=== PATIENT | female | born 1975 | race Caucasian/White ===

== ENCOUNTER 2017-05-14 17:05 | Observation (INO) ==
[2017-05-14] MEDS ORDERED: Ondansetron 4 MG/2 ML VIAL IVP ONE ×2 (17:20→22:47)
[2017-05-14] MEDS ORDERED: Ketorolac 30 MG/ML VIAL IVP ONE (17:20)
[2017-05-14] MEDS ORDERED: 0.9 % Sodium Chloride 1,000 ML IVC ONE (17:20)
--- NOTE | 2017-05-14 17:26 | Emergency Department Note ---
Disposition Clinical Impression: Flank pain Abdominal pain Qualifiers: Abdominal location: unspecified location Qualified Code(s): R10.9 - Unspecified abdominal pain Abdominal mass Qualifiers: Abdominal location: left lower quadrant Qualified Code(s): R19.04 - Left lower quadrant abdominal swelling, mass and lump Disposition: Admitted As Inpatient Condition: Fair Forms: ED Satisfaction Letter, Work/School Release Abdominal Pain HPI - General Chief Complaint: ED Abdominal Pain Stated Complaint: L flank pain Time Seen by Provider: 05/14/17 17:11 Source: patient Limitations: no limitations Nursing Notes Reviewed: Yes Vital Signs Reviewed: Yes - History of Present Illness HPI Narrative: 41-year-old female presents to the emergency Department chief complaint of left- sided flank pain. Pain began approximately 7 AM and has waxed and waned through the course of the day. It radiates anteriorly. There is no trauma. There is no history of kidney stones that she has had that she is aware of, but she has a family history of them. There is also no history of trauma this time. Patient is nauseated but she has not vomited. Comes in today looking for answers as to why she hurts. Pt Subjective Complaint: flank pain Consistency: intermittent Location: L flank Pain Severity: moderate Pain Scale: 5 Quality: cramping, dull Radiation: other (Irradiates anterior slightly from location in the left flank.) Migration to: no migration Improves with: nothing Worsens with: nothing Associated symptoms: Reports: nausea Treatments prior to arrival: none - Related Data Allergies Allergy/AdvReac Type Severity Reaction Status Date / Time No Known Allergies Allergy Verified 05/14/17 17:08 All systems ED: reviewed and negative except as stated. Review of Systems: As Per HPI Constitutional: Reports: as per HPI Eyes: Reports: as per HPI ENT ED: Reports: as per HPI Gastrointestinal: Reports: abdominal pain Abdominal Pain PMH - Past Medical History Medical history: Reports: no medical history Female Surgical History: Reports: - Social History Smoking status: Never smoker Alcohol use: Reports: none Drug use: Reports: unknown Physical Exam - General Limitations: no limitations General appearance: alert, in no apparent distress - Head Head exam: atraumatic - Eye Eye exam: Present: normal appearance - ENT ENT exam: normal exam, normal oropharynx - Neck Neck exam: Present: normal inspection - Chest Chest inspection: Present: normal inspection, symmetric chest wall rise - Respiratory Respiratory exam: Present: normal lung sounds bilaterally. Absent: respiratory distress - Cardiovascular Cardiovascular exam: Present: regular rate, normal rhythm - Abdominal Exam Abdominal exam: Present: soft, Non-Tender, normal bowel sounds. Absent: tenderness - Extremities Exam Extremities exam: Present: normal inspection - Back Exam Back exam: Present: normal inspection - Neurological Exam Neurological exam: Present: alert, oriented X3 - Psychiatric Psychiatric exam: Present: normal affect, normal mood - Skin Skin exam: Present: warm, dry, intact Course Vital Signs Temperature 98.3 F 05/14/17 17:06 Pulse Rate 81 05/14/17 17:06 Respiratory Rate 16 05/14/17 17:06 Blood Pressure 144/84 05/14/17 17:06 O2 Sat by Pulse Oximetry 100 05/14/17 17:06 Temperature 98.3 F 05/14/17 17:06 Pulse Rate 81 05/14/17 17:06 Respiratory Rate 16 05/14/17 17:06 Blood Pressure 144/84 05/14/17 17:06 O2 Sat by Pulse Oximetry 100 05/14/17 17:06 Oxygen Delivery Oxygen Delivery Room Air Abdominal Pain - MDM Narrative Medical decision making narrative: We will workup for kidney stone. We will treat pain with medication and nausea medication. We will also check basic labs. Disposition will depend on pain management and the findings of the workup. CT scan revealed a difficult to determine pelvic mass compressing her ureter and ultimately causing her pain. I spoke with urology who recommended bringing her in for further evaluation and possible biopsy and additional CT scan testing. Additionally the radiologist recommended an IV contrasted study which was ordered. I spoke with the hospitalist service at approximately 7:40 PM. We did arrange for admission. He recommended mended treating with Rocephin and getting blood and urine cultures which we accommodated. Patient denied additional pain medication or nausea medication although both were offered to her multiple times. I did explain to her that the mass was causing her symptoms ultimately but that we could not really determine what it was at this point and that additional testing would be required to do that. - Lab Data Lab results reviewed: Yes I reviewed the patient's lab results. Result diagrams: 05/14/17 17:50 05/14/17 17:50 Lab Results 05/14/17 05/14/17 05/14/17 Range/Units 17:50 17:50 17:50 WBC 14.6 H (4.3-11.1) K/mcL RBC 4.90 (3.82-4.97) M/mcL Hgb 13.7 (11.5-15.4) g/dL Hct 41.8 (35.3-44.9) % MCV 85.3 (83.0-100.0) fL MCH 28.0 (28.0-33.3) pg MCHC 32.8 (31.6-35.5) g/dL RDW 12.9 (11.5-14.5) % Plt Count 288 (140-400) K/mcL MPV 10.0 (9.4-12.4) fL Immature Gran % 0.5 (0-4) % Seg Neutrophils % 86.3 % Lymphocytes % 8.4 % Monocytes % 4.3 % Eosinophils % 0.1 % Basophils % 0.4 % Neutrophils # 12.6 H (1.6-8.9) K/mcL Lymphocytes # 1.2 (0.6-4.6) K/mcL Monocytes # 0.6 (0.0-1.3) K/mcL Eosinophils # 0.0 (0.0-0.6) K/mcL Basophils # 0.1 (0.0-0.2) K/mcL Sodium (136-145) mEq/L Potassium (3.5-5.1) mEq/L Chloride (98-107) mEq/L Carbon Dioxide (23-29) mEq/L BUN (6-20) mg/dL Creatinine (0.60-1.20) mg/dL Est GFR ( Amer) (> 60) Est GFR (Non-Af Amer) (> 60) BUN/Creatinine Ratio (6-26) Glucose (70-105) mg/dL Calculated Osmolality (280-300) Calcium (8.6-10.3) mg/dL Total Bilirubin (0.3-1.0) mg/dL Direct Bilirubin (0.0-0.2) mg/dL Indirect Bilirubin (0.0-1.2) mg/dL AST (13-39) Units/L ALT (7-52) Units/L Alkaline Phosphatase (34-104) Units/L Serum Total Protein (6.4-8.9) g/dL Albumin (3.5-5.7) g/dL Globulin (2.4-3.5) g/dL Albumin/Globulin Ratio (1.1-2.2) Amylase (29-103) Units/L Lipase (11-82) Units/L Urine Color Yellow (Yellow) Urine Clarity Cloudy A (Clear) Urine pH 6.0 (5.0-8.0) pH Units Ur Specific [place] 1.025 (1.010-1.025) Urine Protein Trace (Neg-Trace) mg/dL Urine Glucose (UA) Normal (Normal) mg/dL Urine Ketones 40 H (Negative) mg/dL Urine Blood Large H (Negative) Urine Nitrite Negative (Negative) Urine Bilirubin Negative (Negative) Urine Urobilinogen Normal (Normal) mg/dL Ur Leukocyte Esterase Negative (Negative) Urine Microscopic RBC 3-5 H (0-3) per hpf Urine Microscopic WBC 5-15 H (0-3) per hpf Ur Squamous Epith Cells Many H (None-Few) per lpf Urine Bacteria Few (None-Few) per hpf Hyaline Casts None Seen (None-Few) per lpf Ur Culture Indicated? NO (NO) Urine Test Negative (Negative) 05/14/17 Range/Units 17:50 WBC (4.3-11.1) K/mcL RBC (3.82-4.97) M/mcL Hgb (11.5-15.4) g/dL Hct (35.3-44.9) % MCV (83.0-100.0) fL MCH (28.0-33.3) pg MCHC (31.6-35.5) g/dL RDW (11.5-14.5) % Plt Count (140-400) K/mcL MPV (9.4-12.4) fL Immature Gran % (0-4) % Seg Neutrophils % % Lymphocytes % % Monocytes % % Eosinophils % % Basophils % % Neutrophils # (1.6-8.9) K/mcL Lymphocytes # (0.6-4.6) K/mcL Monocytes # (0.0-1.3) K/mcL Eosinophils # (0.0-0.6) K/mcL Basophils # (0.0-0.2) K/mcL Sodium 135 L (136-145) mEq/L Potassium 3.5 (3.5-5.1) mEq/L Chloride 104 (98-107) mEq/L Carbon Dioxide 23 (23-29) mEq/L BUN 7 (6-20) mg/dL Creatinine 0.63 (0.60-1.20) mg/dL Est GFR ( Amer) > 60 (> 60) Est GFR (Non-Af Amer) > 60 (> 60) BUN/Creatinine Ratio 11 (6-26) Glucose 122 H (70-105) mg/dL Calculated Osmolality 279 L (280-300) Calcium 9.5 (8.6-10.3) mg/dL Total Bilirubin 1.0 (0.3-1.0) mg/dL Direct Bilirubin 0.2 (0.0-0.2) mg/dL Indirect Bilirubin 0.8 (0.0-1.2) mg/dL AST 12 L (13-39) Units/L ALT 12 (7-52) Units/L Alkaline Phosphatase 91 (34-104) Units/L Serum Total Protein 7.3 (6.4-8.9) g/dL Albumin 4.3 (3.5-5.7) g/dL Globulin 3.0 (2.4-3.5) g/dL Albumin/Globulin Ratio 1.4 (1.1-2.2) Amylase 20 L (29-103) Units/L Lipase 6 L (11-82) Units/L Urine Color (Yellow) Urine Clarity (Clear) Urine pH (5.0-8.0) pH Units Ur Specific [place] (1.010-1.025) Urine Protein (Neg-Trace) mg/dL Urine Glucose (UA) (Normal) mg/dL Urine Ketones (Negative) mg/dL Urine Blood (Negative) Urine Nitrite (Negative) Urine Bilirubin (Negative) Urine Urobilinogen (Normal) mg/dL Ur Leukocyte Esterase (Negative) Urine Microscopic RBC (0-3) per hpf Urine Microscopic WBC (0-3) per hpf Ur Squamous Epith Cells (None-Few) per lpf Urine Bacteria (None-Few) per hpf Hyaline Casts (None-Few) per lpf Ur Culture Indicated? (NO) Urine Test (Negative) - Radiology Data Radiology results reviewed: Yes I reviewed the patient's radiology results.
[2017-05-14 18:03] LABS: Basophils # 0.1 K/mcL (0.0-0.2); Basophils % 0.4 %; Eosinophils % 0.1 %; Hematocrit 41.8 % (35.3-44.9); Hemoglobin 13.7 g/dL (11.5-15.4); Immature Granulocytes % 0.5 % (0-4); Lymphocytes # 1.2 K/mcL (0.6-4.6); Lymphocytes % 8.4 %; Mean Corpuscular HGB Conc 32.8 g/dL (31.6-35.5); Mean Corpuscular Volume 85.3 fL (83.0-100.0); Monocytes # 0.6 K/mcL (0.0-1.3); Monocytes % 4.3 %; Neutrophils # 12.6 K/mcL (1.6-8.9); Platelet Count 288 K/mcL (140-400); Red Cell Distribution Width 12.9 % (11.5-14.5); Segmented Neutrophils % 86.3 %
[2017-05-14 18:05] LABS: Bilirubin,Urine Negative (Negative); Blood,Urine Large (Negative); Clarity,Urine Cloudy (Clear); Color,Urine Yellow (Yellow); Glucose,Urine (UA) Normal (Normal); Ketones,Urine 40 mg/dL (Negative); Leukocyte Esterase,Urine Negative (Negative); Nitrite,Urine Negative (Negative); Protein,Urine Trace mg/dL (Neg-Trace); Specific Gravity,Urine 1.025 (1.010-1.025); Urobilinogen,Urine Normal (Normal)
[2017-05-14 18:07] LABS: Bacteria,Urine Few per hpf (None-Few); Hyaline Casts,Urine None Seen per lpf (None-Few); Squamous Epithelial Cell,Urine Many per lpf (None-Few)
[2017-05-14 18:24] LABS: Alanine Aminotransferase 12 Units/L (7-52); Albumin 4.3 g/dL (3.5-5.7); Albumin/Globulin Ratio 1.4 (1.1-2.2); Alkaline Phosphatase 91 Units/L (34-104); Amylase 20 Units/L (29-103); Aspartate Amino Transferase 12 Units/L (13-39); BUN/Creatinine Ratio 11 (6-26); Bilirubin,Direct 0.2 mg/dL (0.0-0.2); Bilirubin,Indirect 0.8 mg/dL (0.0-1.2); Blood Urea Nitrogen 7 mg/dL (6-20); Calcium 9.5 mg/dL (8.6-10.3); Carbon Dioxide 23 mEq/L (23-29); Chloride 104 mEq/L (98-107); Glucose 122 mg/dL (70-105); Lipase 6 Units/L (11-82); Osmolality,Calculated 279 (280-300); Potassium 3.5 mEq/L (3.5-5.1); Sodium 135 mEq/L (136-145); Total Protein 7.3 g/dL (6.4-8.9); eGFR For African Americans > 60 (> 60); eGFR For Non-African Americans > 60 (> 60)
[2017-05-14] MEDS ORDERED: cefTRIAXone 1,000 MG in Water for inj. (sterile) 20 ML 10 ML IVP ONE (19:42)
--- NOTE | 2017-05-14 20:52 | Internal Med History&Physical ---
Date of Encounter: 05/14/17 Time of Encounter: 20:52 Internal Medicine - H&P: HPI History of present illness: Ms. Mon is a 41 year old female Past Med Surg Social Fam HX - Past Medical History Medical history: no medical history - Social History Smoking Status: Never smoker Alcohol use: none Drug use: unknown Internal Medicine - H&P: Meds 3 Allergy/AdvReac Type Severity Reaction Status Date / Time No Known Allergies Allergy Verified 05/14/17 17:08 All Systems PM: A 10-system review of systems was performed and is negative for pertinent findings except as documented above in the HPI. - Constitutional Vitals: Temp Pulse Resp BP Pulse Ox 98.3 F 80 18 142/82 99 05/14/17 17:06 05/14/17 20:17 05/14/17 20:17 05/14/17 20:17 05/14/17 20:17 Internal Med - H&P Results - Labs CBC & Chem 7: 05/14/17 17:50 05/14/17 17:50
[2017-05-14] MEDS ORDERED: *HR* OxyCODONE/APAP 5/325 TABLET PO PRN (22:47)
[2017-05-14] MEDS ORDERED: Ondansetron 4 MG/2 ML VIAL IVP PRN (22:52)
--- NOTE | 2017-05-14 22:57 | Event Note ---
Date of Encounter: 05/14/17 Time of Encounter: 22:48 Dr Blackman called me regarding Mrs Mon who was admitted for left flank pain with hematuria and found to have a 9.9cm parametrial mass on a CT scan that was done today. The CT findings suggested a thrombus. 5 yrs ago, she had an U/S which showed she had prominent pelvic blood vessels. VSS/labs normal I discussed with him and we both went to talk to the patient about my recommendations after reviewing the images. I recommended transfer to [facility] because she will need surgery to determine exactly what this mass is and the location. It looks like it is exerting mass effect on the ureter and that is why she is having hydronephrosis and hematuria. I worry about anticoagulation at this time because of rupture of the thrombus. I anticipate a Diag Lap and then further surgical management based on findings. The patient agrees to transfer.
--- NOTE | 2017-05-14 23:18 | Internal Med History&Physical ---
Date of Encounter: 05/14/17 Time of Encounter: 22:00 Assessment and Plan (1) Acute deep vein thrombosis of left side of pelvic region Current visit: Yes Status: Acute 1. I consulted Dr. Mackenzie ([employer]) who saw patient and reviewed CT images. He recommends transfer to [facility] for subpecialty care and surgery. 2. I contacted [facility] and spoke with Dr. Hernandez ([employer]) who agrees and accepts patient in transfer. 3. We are coordinating transfer to [facility] now. (2) Flank pain Current visit: Yes Status: Acute 1. Pain is secondary to clot. 2. Will treat with Percocet PRN. 3. She may need IV opiate control if she fails above. (3) DVT prophylaxis Current visit: Yes Status: Acute 1. EPCD's. Internal Medicine - H&P: HPI Chief complaint: flank pain Admitted From: Emergency Dept Plans for Post Hospital Care: Transfer Other History of present illness: Ms. Mon is a 41 year old female who presents to the ER today with sudden onset of flank pain earlier this morning. Pain was persistent and recurring with little relief. She therefore went to the ER. Workup in the ER revealed hematuria, which prompted ER staff to obtain a CT of the abdomen and pelvis to evaluate for possible nephrolithiasis versus pyelonephritis. She was found to have a pelvic mass and a CT with IV contrast was recommended by radiology. I was called by the ER staff to admit patient and proceed with further workup. Upon my assessment of the patient, she and her described the pain she was having off and on today. It is throbbing and recurring in nature with little relief. Prior to today, she was doing well and has had no problems. She denies any dysuria, hematuria, fevers, chills, nausea, or vomiting prior to today. She denies any abdominal or pelvic trauma, prolonged travel, smoking history, contraceptive use, or any family or personal history of blood clots. Her repeat CT scan with contrast revealed a large clot -- roughly 9.3 x 9.3 x 4.1 cm. I called gynecology and spoke with Dr. Mackenzie who saw her in consultation. He saw the patient and reviewed the images and discussed with me and the family and the patient. Dr. Mackenzie [facility] as she will need surgery soon and further diagnostic and therapeutic workup for this blood clot in the pelvic floor. I therefore contacted [facility] and spoke with Dr. Hernandez from the department of gynecology. I discussed the case with him, and he agreed to accept patient in transfer. Patient is therefore being transferred to [facility] for subspecialty care and intervention as recommended. I discussed with patient and family again, and they agree with plan. Past Med Surg Social Fam HX - Past Medical History Attestation: Yes The following information was validated with the patient. Source: patient, old records reviewed Medical history: no medical history Psychiatric history: anxiety - Past Surgical History Surgical History: - Social History Smoking Status: Never smoker Smokeless Tobacco Status: No Alcohol use: none Drug use: unknown Occupational status: employed Current living situation: Home, With Family Activity Level: Independent ambulation Recent Out of Country Travel Within the Last 8 Weeks: No - Family History Mother Hx Family Cardiac Disorders: Yes (Stroke) - Additional Family History Additional family history: NO FH of clots/PE Internal Medicine - H&P: Meds 3 Allergy/AdvReac Type Severity Reaction Status Date / Time No Known Allergies Allergy Verified 05/14/17 17:08 - Constitutional Constitutional: no chills, no fever(s), no night sweats - EENT Eyes: no blurry vision, no change in vision Ears: no ear pain, no tinnitus Nose, mouth and throat: no nasal congestion, no sinus pressure, no sore throat - Cardiovascular Cardiovascular ROS IM: no chest pain, no dyspnea - Respiratory Respiratory: no cough, no hemoptysis, no chest congestion, no excessive phlegm production - Gastrointestinal Gastrointestinal: no abdominal pain, no cramping, no hematemesis, no hematochezia, no melena, no vomiting - Genitourinary Genitourinary: dysuria, flank pain, hematuria, pelvic pain, no abnormal vaginal bleeding - Musculoskeletal Musculoskeletal ROS IM: no arthralgias, no muscle cramps, no muscle weakness, no myalgias - Integumentary Integumentary IM: no rash, no jaundice - Neurological Neurological ROS: no dizziness, no focal weakness, no frequent falls, no headache(s), no vertigo, no weakness - Psychiatric Psychiatric: no anxiety, no depression - Endocrine Endocrine IM: no polydipsia, no polyuria - Hematologic/Lymphatic Hematologic/Lymphatic: no easy bruising, no lymphadenopathy - Allergic/Immunologic Allergic/Immunologic: no wheezing, no GI upset with certain foods - Constitutional Vitals: Temp Pulse Resp BP Pulse Ox 98.7 F 97 16 142/85 97 05/14/17 20:55 05/14/17 20:55 05/14/17 20:55 05/14/17 20:55 05/14/17 20:55 General appearance: Present: cooperative, mild distress, A&O X 3, pleasant, answers questions appropriately - Head Head exam: Present: normal inspection - Eye Eye exam: Present: EOMI, normal appearance, PERRL. Absent: scleral icterus Pupils: Present: normal accommodation - ENT ENT exam: Present: mucous membranes dry, normal exam - Neck Neck exam general surgery: Present: full ROM, supple. Absent: tenderness, nuchal rigidity - Respiratory Respiratory exam: Present: CTAB. Absent: chest wall tenderness, rales, rhonchi , wheezes - Cardiovascular Cardiovascular exam: Present: RRR, +S1, +S2. Absent: diastolic murmur, systolic murmur - GI/Abdominal GI/Abdominal exam: Present: normal bowel sounds, soft, tenderness (mild left pelvic/LLQ area). Absent: guarding, hepatomegaly, mass, rebound, splenomegaly - Extremities Exam Extremities exam: Present: full ROM, normal capillary refill, warm, radial pulses palpable and symmetrical. Absent: calf tenderness, joint swelling, pedal edema, tenderness - Back Exam Back exam: Present: normal inspection, tenderness (mild left sided pain but not true flank pain). Absent: CVA tenderness (L), CVA tenderness (R), paraspinal tenderness - Psychiatric Psychiatric exam: Present: normal affect, normal mood - Skin Skin exam: Present: dry, warm. Absent: rash Internal Med - H&P Results - Labs CBC & Chem 7: 05/14/17 17:50 05/14/17 17:50 - Diagnostic Studies CT scan - abdomen Status: image reviewed by me (9.3x9.3x4 cm thrombus near left adnexa/uterus)
[2017-05-14 23:33] VITALS: BP 119/81
== END 2017-05-15 00:15 | disposition short-term general hospital (02) ==
LOC: EMEROO 17:05 → 3ANU 17:05
PROVIDERS: ADMIT Pediatrics; ATTEND Internal Medicine